=== PATIENT | male | born 2000 | race Caucasian/White ===

== ENCOUNTER 2022-09-29 15:20 | Outpatient (REF) | payer OTHER, SELFPAY ==
[2022-09-29 17:22] LABS: Hematocrit 45.3 % (42.0-52.0); Hemoglobin 15.8 g/dl (14.0-18.0); Mean Corpuscular HGB Conc 34.9 g/dl (31.0-36.0); Mean Corpuscular Volume 86.1 fL (80.0-98.0); Mean Platelet Volume 12.3 fL (9.4-12.4); Platelet Count 181 X10*3/uL (160-400); Red Blood Count 5.26 X10*6/uL (4.60-5.80); Red Cell Distribution Width 11.9 % (11.0-16.0); White Blood Count 6.9 X10*3/uL (4.8-10.8)
[2022-09-29 17:48] LABS: Alanine Aminotransferase 66 U/L (0-40); Albumin Level 3.9 g/dL (3.5-5.0); Alkaline Phosphatase 113 U/L (39-117); Anion Gap 15 (12-20); Aspartate Amino Transferase 49 U/L (5-37); Bilirubin Direct 0.2 mg/dL (0.0-0.5); Bilirubin Total 0.8 mg/dL (0.0-1.0); Blood Urea Nitrogen 9 mg/dL (9-16); Calcium 9.6 mg/dL (8.4-10.2); Carbon Dioxide 24 mmol/L (22-29); Chloride 104 mmol/L (96-108); Estimated Glomerular Filt Rate > 60; Glucose Random 113 mg/dL (60-115); Potassium 3.3 mmol/L (3.3-5.1); Sodium 140 mmol/L (135-145); Total Protein 7.6 g/dL (6.5-8.0)
[2022-09-29 18:09] LABS: Erythrocyte Sedimentation Rate 24 MM/HR (0-15)
[2022-10-02 17:58] LABS: Lyme Blot 4.45 index
[2022-10-03 11:27] LABS: Lyme Abs Screen POSITIVE
[2022-10-07 22:53] LABS: 18 KD (IgG) Band NON-REACTIVE; 23 KD (IgG) Band NON-REACTIVE; 23 KD (IgM) Band REACTIVE; 28 KD (IgG) Band NON-REACTIVE; 30 KD (IgG) Band NON-REACTIVE; 39 KD (IgM) Band REACTIVE; 39KD (IgG) Band NON-REACTIVE; 41 KD (IgM) Band REACTIVE; 41KD (IgG) Band NON-REACTIVE; 45 KD (IgG) Band NON-REACTIVE; 58 KD (IgG) Band NON-REACTIVE; 66 KD (IgG) Band NON-REACTIVE; 93 KD (IgG) Band NON-REACTIVE; Lyme IgG Blot Interp NEGATIVE (NEGATIVE); Lyme IgM Blot Interp POSITIVE (NEGATIVE)
== END 2022-09-29 15:21 | disposition home or self-care (01) ==
LOC: HO.HMGCLDS 15:20
PROVIDERS: Visit Provider Internal Medicine
DX: A69.20 Lyme disease, unspecified (principal)
CPT/HCPCS: 36415; 80048; 80076; 85027; 85652; 86617; 86618

== ENCOUNTER 2022-10-20 14:06 | Outpatient (AMB) | payer OTHER, SELFPAY ==
--- NOTE | 2022-10-20 14:45 | MHC.OFFWIV ---
Intake Vital Signs 10/20/22 14:49 BP 118/76 Blood Pressure Location Lt brachial Position Sitting Pulse 82 Pulse Source Pulse Oximeter Pulse Oximetry (%) 98 Oxygen Delivery Method Room Air Intake Visit Reasons: EP lyme re-test 3wks (paco) Intake Note: Patient here because he had lyme disease and would like to be re tested to make sure he is clear from lyme. Patient Tobacco Use Status: Never used Tobacco Allergies No Known Allergies Allergy (Verified 10/20/22 15:05) Medication List - Last Reconciled 10/20/22 by Steve Singh MD doxycycline hyclate 100 mg PO BID 21 days Do you need a note to return to daycare/school/sports/work: No HPI EP lyme re-test 3wks (paco) HPI Details 22-year-old male returns to the office for a follow-up visit. He is accompanied by his father. Patient is completed 21 days of antibiotics. He feels much better. He is requesting a Lyme repeat test to make sure that his illnesses has gone. PFSH Social History Patient Tobacco Use Status: Never used Tobacco Physical Exam Vital Signs: Last Vital Signs Pulse 82 10/20/22 14:49 BP 118/76 10/20/22 14:49 Pulse Ox 98 10/20/22 14:49 Oxygen Delivery Method Room Air 10/20/22 14:49 Assessment & Plan Assessment & Plan (1) Lyme disease: Code(s): A69.20 - Lyme disease, unspecified Plan: Repeat testing not needed. Patient was counseled on the lab testing. Coding Level of Care Code Est Pt Level 3 (18494) Diagnoses Lyme disease A69.20
[2022-10-20 14:49] VITALS: BP 118/76; PULSE 82; O2SAT 98
== END 2022-10-20 15:14 | disposition home or self-care (01) ==
PROVIDERS: Visit Provider Internal Medicine
DX: A69.20 Lyme disease, unspecified (principal)
CPT/HCPCS: 99213